=== PATIENT | male | born 1955 | race Caucasian/White ===

== ENCOUNTER 2017-06-23 06:53 | Day surgery (SDC) | payer BC ==
[2017-06-23] MEDS ORDERED: NS 500 ML IV 500 ML IV ONE (07:22)
[2017-06-23] MEDS ORDERED: TETRACAINE 0.5% OPHTH 1 DOSE AFFEYE ONE ×4 (07:33→11:09)
[2017-06-23] MEDS ORDERED: VIGAMOX 0.5% OPHTH 1 DOSE AFFEYE ONE ×5 (07:34→11:19)
[2017-06-23] MEDS ORDERED: PROLENSA OPHTH 1 DOSE AFFEYE ONE (07:45)
[2017-06-23] MEDS ORDERED: ALPHAGAN-P OPHTH 1 DOSE AFFEYE ONE (07:46)
[2017-06-23] MEDS ORDERED: MYDRIACIL OPHTH 1 DOSE AFFEYE ONE ×6 (07:47→07:52)
[2017-06-23] MEDS ORDERED: AK-DILATE 2.5% OPHTH 1 DOSE OP ONE ×6 (07:47→07:52)
[2017-06-23] MEDS ORDERED: CYCLOGYL 1% OPHTH 1 DOSE OP ONE ×6 (07:47→07:52)
[2017-06-23] MEDS ORDERED: BETADINE OPHTH SOLN 5% EACHEYE ONE (10:55)
[2017-06-23] MEDS ORDERED: DUOVISC IO ONE ×2 (11:02→11:09)
[2017-06-23] MEDS ORDERED: ADRENALINE CHL INJ IJ ONE ×2 (11:02→11:09)
[2017-06-23] MEDS ORDERED: XYLOCAINE-MPF 1% IJ ONE ×2 (11:02→11:09)
[2017-06-23] MEDS ORDERED: BSS OPHTH (PLAIN) 500 ML with VANCOMYCIN HCL 500 MG VIAL 25 MG, ADRENALINE CHL INJ 1 MG IR ONE ×6 (11:03)
[2017-06-23 13:05] VITALS: BP 170/84
[2017-06-23] MEDS ORDERED: DIPRIVAN VIAL ONE (15:46)
[2017-06-23] MEDS ORDERED: VERSED ONE (15:46)
== END 2017-06-23 11:45 | disposition home or self-care (01) ==
LOC: SURG1 06:53
PROVIDERS: ATTEND Ophthalmology
PROC: 08RJ3JZ Replacement of Right Lens with Synthetic Substitute, Percutaneous Approach (ICD-10-PCS; principal; 2017-06-23 11:45)
PROC: 08DJ3ZZ Extraction of Right Lens, Percutaneous Approach (ICD-10-PCS; principal; 2017-06-23 11:45)
DX: H25.11 Age-related nuclear cataract, right eye (principal); H25.041 Posterior subcapsular polar age-related cataract, right eye
CPT/HCPCS: A4217; J0170; J2250; J3370; J3490

== ENCOUNTER 2017-07-28 11:03 | Day surgery (SDC) | payer BC ==
[2017-07-28] MEDS ORDERED: NS 500 ML IV 500 ML IV ONE (11:42)
[2017-07-28] MEDS ORDERED: TETRACAINE 0.5% OPHTH 1 DOSE AFFEYE ONE ×2 (12:20→14:51)
[2017-07-28] MEDS ORDERED: VIGAMOX 0.5% OPHTH 1 DOSE AFFEYE ONE ×5 (12:25→15:17)
[2017-07-28] MEDS ORDERED: PROLENSA OPHTH 1 DOSE AFFEYE ONE (12:36)
[2017-07-28] MEDS ORDERED: ALPHAGAN-P OPHTH 1 DOSE AFFEYE ONE (12:37)
[2017-07-28] MEDS ORDERED: MYDRIACIL OPHTH 1 DOSE AFFEYE ONE ×3 (12:38→12:40)
[2017-07-28] MEDS ORDERED: AK-DILATE 2.5% OPHTH 1 DOSE OP ONE ×3 (12:38→12:40)
[2017-07-28] MEDS ORDERED: CYCLOGYL 1% OPHTH 1 DOSE OP ONE ×3 (12:38→12:40)
[2017-07-28] MEDS ORDERED: DIPRIVAN VIAL ONE (13:36)
[2017-07-28] MEDS ORDERED: BETADINE OPHTH SOLN 5% EACHEYE ONE (14:51)
[2017-07-28] MEDS ORDERED: XYLOCAINE-MPF 1% IJ ONE ×2 (14:54→15:09)
[2017-07-28] MEDS ORDERED: DUOVISC IO ONE ×2 (14:54→15:09)
[2017-07-28] MEDS ORDERED: ADRENALINE CHL INJ IJ ONE ×2 (14:54→15:09)
[2017-07-28] MEDS ORDERED: BSS OPHTH (PLAIN) 500 ML with VANCOMYCIN HCL 500 MG VIAL 25 MG, ADRENALINE CHL INJ 1 MG IR ONE ×6 (14:55)
[2017-07-28 17:41] VITALS: BP 152/74
== END 2017-07-28 15:48 | disposition home or self-care (01) ==
LOC: SURG1 11:03
PROVIDERS: ATTEND Ophthalmology
PROC: 08DK3ZZ Extraction of Left Lens, Percutaneous Approach (ICD-10-PCS; principal; 2017-07-28 06:00)
PROC: 08RK3JZ Replacement of Left Lens with Synthetic Substitute, Percutaneous Approach (ICD-10-PCS; principal; 2017-07-28 06:00)
DX: H25.12 Age-related nuclear cataract, left eye (principal); H25.042 Posterior subcapsular polar age-related cataract, left eye
CPT/HCPCS: A4217; J0170; J3370; J3490